=== PATIENT | female | born 1945 | race American Indian/Alaskan Native ===

== ENCOUNTER 2016-06-29 09:51 | Outpatient (CLI) | payer BC, MEDICARE ==
--- NOTE | 2016-06-29 15:42 | Mammography Report ---
BILATERAL DIGITAL SCREENING MAMMOGRAM with CAD: 06/29/16 09:51:00 CLINICAL: Routine screening. COMPARISON:06/28/15 FINDINGS: The breasts are heterogeneously dense, which may obscure small masses and limit the sensitivity of mammography. A right asymmetry on the CC view requires additional imaging.No architectural distortion or suspicious calcifications.The left breast is negative. IMPRESSION: Right asymmetry requiring further workup. BI-RADS CATEGORY: 0 -- Additional Imaging Evaluation Required RECOMMENDATION: Recall for a right CC spot compression view and right breast ultrasound if needed. ACR BI-RADS MAMMOGRAPHIC CODES: 0 = Needs additional imaging evaluation; 1 = Negative; 2 = Benign; 3 = Probably benign; 4 = Suspicious; 5 = Malignant; 6 = Known biopsy-proven malignancy COMMENT: 1. Dense breast tissue, i.e., adenosis, fibrocystic changes, etc., may obscure an underlying neoplasm. 2. Approximately 10% of cancers are not detected with mammography. 3. A negative mammography report should not delay biopsy if a clinically suspicious mass is present. COMMENT: Patient follow-up letters are generated via our [employer] application.
== END 2016-06-29 09:52 | disposition home or self-care (01) ==
LOC: SPVWC 09:51
PROVIDERS: ATTEND Family Medicine
DX: Z12.31 Encounter for screening mammogram for malignant neoplasm of breast (principal)
CPT/HCPCS: 77067; G0202

== ENCOUNTER 2016-07-25 09:37 | Outpatient (CLI) | payer MEDICARE ==
--- NOTE | 2016-07-25 13:31 | Ultrasound Report ---
ULTRASOUND GUIDED NEEDLE CORE BIOPSY RIGHT BREAST WITH CLIP PLACEMENT: 07/25/16 CLINICAL: Right breast mass at 9 o'clock. COMPARISON :07/16/16 FINDINGS: The procedure was explained to the patient and informed consent was obtained. Ultrasound demonstrated the previously described irregular solid hypoechoic mass at 9 o'clock 60 m from the nipple. The mass has a ductal shape are. I marked the breast with a felt tip marker and a time out was called. The skin was prepped with Betadine and anesthetized with 1% lidocaine. Needle core biopsy was performed through a tiny dermatotomy using ultrasound guidance, 2% lidocaine with epinephrine for deep anesthesia and a 14-gauge Achieve biopsy device. Imaging demonstrated satisfactory sampling. 3 cores were obtained and placed in formalin. A clip was deployed within the lesion The patient tolerated the procedure well and there were no apparent complications. Hemostasis was achieved with gentle pressure and a sterile dressing was applied. A two view mammogram demonstrated concordant placement of the clip. She left the department in good condition and was given instructions for wound care and followup. IMPRESSION: Uncomplicated ultrasound guided needle core biopsy with clip placement right breast.
--- NOTE | 2016-07-25 13:43 | Mammography Report ---
RIGHT DIGITAL DIAGNOSTIC MAMMOGRAM: 07/25/16 09:37:00 CLINICAL: For clip placement immediately status post ultrasound biopsy. COMPARISON:07/16/16 FINDINGS: A biopsy clip is now identified at 9 o'clock. No distinct mass is identified. IMPRESSION: Concordant clip placement status post ultrasound biopsy. BI-RADS CATEGORY: 4--Suspicious Pathology pending.
== END 2016-07-25 09:38 | disposition home or self-care (01) ==
LOC: SPVWC 09:37
PROVIDERS: ATTEND Family Medicine
DX: N63 Unspecified lump in breast (principal)
CPT/HCPCS: 19083; 88305; A4648; G0206

== ENCOUNTER 2017-01-02 10:13 | Outpatient (CLI) | payer MEDICARE ==
--- NOTE | 2017-01-02 11:54 | Ultrasound Report ---
RIGHT DIGITAL DIAGNOSTIC MAMMOGRAM with CAD and RIGHT BREAST ULTRASOUND: 01/02/17 10:13:00 CLINICAL: Six month followup after a benign biopsy. COMPARISON:07/25/16 FINDINGS: The breast is heterogeneously dense, which may obscure small masses. A clip at 9 o'clock correlates with the ultrasound biopsy performed on 07/25/16. No mass, architectural distortion or suspicious calcifications. Ultrasound of the outer right breast was performed and demonstrated normal fibroglandular structures in normal fatty structures. No mass, cyst or shadowing. The previously described lesion is no longer identified. IMPRESSION: No mammographic evidence of malignancy. BI-RADS CATEGORY: 2 -- Benign RECOMMENDATION: Return to routine mammographic screening. ACR BI-RADS MAMMOGRAPHIC CODES: 0 = Needs additional imaging evaluation; 1 = Negative; 2 = Benign; 3 = Probably benign; 4 = Suspicious; 5 = Malignant; 6 = Known biopsy-proven malignancy COMMENT: 1. Dense breast tissue, i.e., adenosis, fibrocystic changes, etc., may obscure an underlying neoplasm. 2. Approximately 10% of cancers are not detected with mammography. 3. A negative mammography report should not delay biopsy if a clinically suspicious mass is present. COMMENT: Patient follow-up letters are generated by our [employer] application.
== END 2017-01-02 10:14 | disposition home or self-care (01) ==
LOC: SPVWC 10:13
DX: R92.8 Other abnormal and inconclusive findings on diagnostic imaging of breast (principal)
CPT/HCPCS: 76642; G0206

== ENCOUNTER 2017-01-15 13:07 | Outpatient (CLI) | payer MEDICARE ==
--- NOTE | 2017-01-15 16:27 | Magnetic Resonance Report ---
MRI scan of brain: History: Severe headache. Technique: Multiplanar, multisequence images were obtained without and with contrast injection. Findings: No evidence of restricted diffusion. Ventricles are normal in size and midline in location. No evidence of acute ischemia, hemorrhage or mass. No extra-axial fluid collection. Normal brainstem and cerebellum. No abnormal enhancement following injection of contrast. There is 2.2 x 1.4 cm polyp or retention cyst in right maxillary sinus. Impression: No acute intracranial abnormality. Sinus disease.
== END 2017-01-15 13:08 | disposition home or self-care (01) ==
LOC: SPVIMAG 13:07
PROVIDERS: ATTEND Family Medicine
DX: R51 Headache (principal); J33.8 Other polyp of sinus
CPT/HCPCS: 70553; A9577